=== PATIENT | male | born 1955 | race Caucasian/White ===

== ENCOUNTER 2018-09-22 07:33 | Day surgery (SDC) | payer BC, MEDICARE ==
[~2018-09-22 07:33] MED LIST: Gatifloxacin 0.5% Ophth Soln 2.5 ML Bot EYELF SCH; Sodium Chloride 0.9% 1,000 ML IV SCH; Sodium Chloride 0.9% 10 ML Syringe FLUSH PRN
[2018-09-22] MEDS: Cyclopentolate 1% Opth Soln 2 ML Bottle EYELF SCH ×3 (07:43→08:13)
[2018-09-22] MEDS: Phenylephrine 10% Ophth Soln 5 ML Bot EYELF SCH ×3 (07:53→08:19)
[2018-09-22] MEDS ORDERED: Balanced Salt Solution Ophth Irrig 15 ML Bottle EYELF ONE (09:17)
[2018-09-22] MEDS ORDERED: Water For Irrigation,Sterile 1,500 ML Container IRR ONE (09:17)
[2018-09-22] MEDS ORDERED: EPINEPHrine 1 MG/ML SDV ONE (09:18)
[2018-09-22] MEDS ORDERED: Carbachol 0.01% Intraocular 1.5 ML Vial EYELF ONE (09:18)
[2018-09-22] MEDS ORDERED: Balanced Salt Solution Plus Ophth Irrig 500 ML Bottle IOCULAR ONE (09:18)
[2018-09-22] MEDS ORDERED: Dexamethasone/Neomycin/Polymyxin B Ophth Oint 3.5 GM Tube EYELF ONE (09:19)
[2018-09-22] MEDS ORDERED: Lidocaine 2% with EPINEPHrine 1:100,000 20 ML MDV INJECT ONE (09:19)
[2018-09-22] MEDS ORDERED: Tetracaine HCl/PF 0.5% 4 ML Bottle EYEBOTH ONE (09:20)
[2018-09-22] MEDS ORDERED: Hyaluronate Sodium 1% 0.85 ML Syringe IOCULAR ONE (09:20)
[2018-09-22] MEDS ORDERED: Lidocaine 1% 10 ML MDV INJECT ONE (09:20)
--- NOTE | 2018-09-22 14:20 | OR ---
DATE OF SURGERY: 09/22/2018 SURGEON: Patrick Lilly MD PREOPERATIVE DIAGNOSIS: Cataract, left eye. POSTOPERATIVE DIAGNOSIS: Cataract, left eye. OPERATION PERFORMED: Phacoemulsification with posterior chamber lens insertion, left eye. HISTORY: The patient presents at this time with an increasing amount of difficulty seeing to drive at night using the left eye. The vision for the left eye is 20/60 -2. 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 This eye has a combined cataract and a cataract of aging. FINDINGS: The patient was taken to the operating room where appropriate anesthesia, sedation and monitoring were provided. A retrobulbar block was given on the left side. The eye was massaged and was found to be appropriately soft. The eye and eyelids were then prepped and draped in the usual sterile manner. A lid speculum was placed. A micro sharp blade was used to enter the anterior chamber inside the limbus inferior-temporally. Xylocaine was irrigated into the eye at this site. Healon was irrigated into the eye through this site. Then using a 2.85 mm corneal blade an entry was made into the anterior chamber just inside the limbus temporally. Healon was again irrigated into the eye. Then using a cystitome, the anterior capsulorrhexis was created. The lens nucleus was hydrodissected using a 27 gauge cannula and balanced salt solution. The phacoemulsification unit was introduced through the temporal site and the Mode spatula through the inferior temporal site. In so doing, the lens nucleus was phacoemulsified. The cortical fragments of the lens were removed using the irrigation aspiration unit. The posterior capsule was polished. Healon was irrigated into the eye. The posterior chamber lens was inserted and rotated into position inside the capsular bag. The Healon was irrigated out of the eye. Miostat was irrigated into the eye and the pupil rounded nicely. A single interrupted 10-0 Nylon suture was placed through the temporal corneal incision site. Balanced salt solution was irrigated into the eye. The wound was tested and found to be tight. Maxitrol ointment was placed into the patient's left eye. The eyelids were closed and an eye patch and nugent shield were placed. The patient left the operating room in good condition. /[id number]/MODL
== END 2018-09-22 09:57 | disposition home or self-care (01) ==
LOC: KA.SDS 07:33
PROVIDERS: ATTEND Ophthalmology
DX: E11.36 Type 2 diabetes mellitus with diabetic cataract (principal); H25.812 Combined forms of age-related cataract, left eye; E78.5 Hyperlipidemia, unspecified; G47.33 Obstructive sleep apnea (adult) (pediatric); Z79.84 Long term (current) use of oral hypoglycemic drugs; Z79.82 Long term (current) use of aspirin; Z79.899 Other long term (current) drug therapy; Z99.89 Dependence on other enabling machines and devices
CPT/HCPCS: 82962; A9270-GY; C1780; J0171; J2001; J7030

== ENCOUNTER 2018-10-27 05:53 | Day surgery (SDC) | payer BC ==
[2018-10-27] MEDS ORDERED: Sodium Chloride 0.9% 1,000 ML IV SCH (06:00)
[2018-10-27] MEDS ORDERED: Sodium Chloride 0.9% 10 ML Syringe FLUSH PRN (06:00)
[2018-10-27] MEDS ORDERED: Gatifloxacin 0.5% Ophth Soln 2.5 ML Bot EYERT SCH (06:00)
[2018-10-27] MEDS ORDERED: Moxifloxacin 0.5% Ophth Soln 3 ML Bottle EYERT ONE (06:05)
[2018-10-27] MEDS: Cyclopentolate 1% Opth Soln 2 ML Bottle EYERT SCH ×3 (06:22→06:52)
[2018-10-27] MEDS: Phenylephrine 10% Ophth Soln 5 ML Bot EYERT SCH ×3 (06:29→07:01)
[2018-10-27] MEDS ORDERED: Lidocaine 1% 10 ML MDV INJECT ONE (07:46)
[2018-10-27] MEDS ORDERED: EPINEPHrine 1 MG/ML SDV ONE (07:46)
[2018-10-27] MEDS ORDERED: Water For Irrigation,Sterile 1,500 ML Container IRR ONE (07:46)
[2018-10-27] MEDS ORDERED: Carbachol 0.01% Intraocular 1.5 ML Vial EYERT ONE (07:46)
[2018-10-27] MEDS ORDERED: Lidocaine 2% with EPINEPHrine 1:100,000 20 ML MDV INJECT ONE (07:46)
[2018-10-27] MEDS ORDERED: Balanced Salt Solution Plus Ophth Irrig 500 ML Bottle IOCULAR ONE (07:46)
[2018-10-27] MEDS ORDERED: Balanced Salt Solution Ophth Irrig 15 ML Bottle EYERT ONE (07:46)
[2018-10-27] MEDS ORDERED: Tetracaine HCl/PF 0.5% 4 ML Bottle EYEBOTH ONE (07:46)
[2018-10-27] MEDS ORDERED: Dexamethasone/Neomycin/Polymyxin B Ophth Oint 3.5 GM Tube EYERT ONE (07:46)
[2018-10-27] MEDS ORDERED: Hyaluronate Sodium 1% 0.85 ML Syringe IOCULAR ONE (07:46)
--- NOTE | 2018-10-27 15:10 | OR ---
DATE OF SURGERY: 10/27/2018 SURGEON: Patrick Lilly MD PREOPERATIVE DIAGNOSIS: Cataract, right eye. POSTOPERATIVE DIAGNOSIS: Cataract, right eye. OPERATION PERFORMED: Phacoemulsification with posterior chamber lens insertion, right eye. HISTORY: The patient presents at this time with an increasing amount of glare at night for the right eye. The vision in the right eye is 20/100. The right lens has a 3+ nuclear sclerosis, 2 to 3+ cortical change, and 1+ posterior subcapsular change. This eye has a combined cataract and a cataract of aging. FINDINGS: The patient was taken to the operating room where appropriate anesthesia, sedation and monitoring were provided. A retrobulbar block was given on the right side. The eye was massaged and was found to be appropriately soft. The eye and eyelids were then prepped and draped in the usual sterile manner. A lid speculum was placed. A micro sharp blade was used to enter the anterior chamber inside the limbus superior-temporally. Xylocaine was irrigated into the eye at this site. Healon was irrigated into the eye through this site. Then using a 2.85 mm corneal blade an entry was made into the anterior chamber just inside the limbus temporally. Healon was again irrigated into the eye. Then using a cystitome, the anterior capsulorrhexis was created. The lens nucleus was hydrodissected using a 27 gauge cannula and balanced salt solution. The phacoemulsification unit was introduced through the temporal site and the Mode spatula through the superior temporal site. In so doing, the lens nucleus was phacoemulsified. The cortical fragments of the lens were removed using the irrigation aspiration unit. The posterior capsule was polished. Healon was irrigated into the eye. The posterior chamber lens was inserted and rotated into position inside the capsular bag. The Healon was irrigated out of the eye. Miostat was irrigated into the eye and the pupil rounded nicely. A single interrupted 10-0 Nylon suture was placed through the temporal corneal incision site. Balanced salt solution was irrigated into the eye. The wound was tested and found to be tight. Maxitrol ointment was placed into the patient's right eye. The eyelids were closed and an eye patch and nugent shield were placed. The patient left the operating room in good condition. /[id number]/MODL
== END 2018-10-27 08:32 | disposition home or self-care (01) ==
LOC: KA.SDS 05:53
PROVIDERS: ATTEND Ophthalmology
DX: H25.811 Combined forms of age-related cataract, right eye (principal); I10 Essential (primary) hypertension; I25.10 Atherosclerotic heart disease of native coronary artery without angina pectoris; I35.0 Nonrheumatic aortic (valve) stenosis; I73.9 Peripheral vascular disease, unspecified; I72.4 Aneurysm of artery of lower extremity; E11.9 Type 2 diabetes mellitus without complications; E78.2 Mixed hyperlipidemia; F32.9 Major depressive disorder, single episode, unspecified; G47.33 Obstructive sleep apnea (adult) (pediatric); F17.200 Nicotine dependence, unspecified, uncomplicated; E66.09 Other obesity due to excess calories; Z68.34 Body mass index [BMI] 34.0-34.9, adult; Z86.39 Personal history of other endocrine, nutritional and metabolic disease; Z86.79 Personal history of other diseases of the circulatory system; Z95.1 Presence of aortocoronary bypass graft; Z88.1 Allergy status to other antibiotic agents; Z88.8 Allergy status to other drugs, medicaments and biological substances; Z99.89 Dependence on other enabling machines and devices
CPT/HCPCS: 82962; A9270-GY; C1780; J0171; J2001; J7030

== ENCOUNTER 2023-12-09 09:51 | Inpatient (IN) | payer BC, MEDICARE ==
[2023-12-09] MEDS ORDERED: Sodium Chloride 0.9% 10 ML Syringe FLUSH PRN (09:52)
[2023-12-09 10:03] LABS: BASOPHILS ABSOLUTE AUTO 0.03 10^3/uL (0.00-0.10); BASOPHILS PERCENT AUTO 0.4 % (0.0-1.0); EOSINOPHILS ABSOLUTE AUTO 0.06 10^3/uL (0.10-0.30); EOSINOPHILS PERCENT AUTO 0.8 % (1.0-3.0); HEMATOCRIT 38.6 % (40.0-52.0); HEMOGLOBIN 12.1 g/dL (13.0-17.0); IMMATURE GRAN ABSOLUTE AUTO 0.02 10^3/uL (0.00-0.50); IMMATURE GRAN PERCENT AUTO 0.3 % (0.0-5.0); MEAN CORPUSCULAR HGB CONC 31.3 g/dL (32.0-36.0); MEAN CORPUSCULAR VOLUME 89.4 fL (82.0-92.0); MEAN PLATELET VOLUME 10.9 fL (7.4-10.4); MONOCYTES ABSOLUTE AUTO 0.57 10^3/uL (0.10-0.80); MONOCYTES PERCENT AUTO 7.2 % (2.0-8.0); NEUTROPHILS ABSOLUTE AUTO 5.34 10^3/uL (2.50-7.00); NEUTROPHILS PERCENT AUTO 67.3 % (50.0-70.0); PLATELET COUNT,PLT 210 10^3/uL (150-400); RED BLOOD CELL COUNT 4.32 10^6/uL (4.50-6.00); RED CELL DISTRIBUTION WIDTH 15.7 % (11.5-14.5); WHITE BLOOD CELL COUNT,WBC 7.92 10^3/uL (5.00-10.00)
[2023-12-09] MEDS: Aspirin 81 MG Tab.Chew PO ONE (10:10)
[2023-12-09] MEDS: Sodium Chloride 0.9% 1,000 ML IV ONE (10:16)
[2023-12-09 10:28] LABS: ALANINE AMINOTRANSFERASE,ALT 30 U/L (14-63); ALBUMIN 3.86 g/dL (3.40-5.00); ALKALINE PHOSPHATASE 29 U/L (46-116); ANION GAP 15.1 mmol/L (5-15); ASPARTATE AMNIOTRANSFERASE,AST 23 U/L (15-37); BILIRUBIN TOTAL 0.8 mg/dL (0.2-1.0); BLOOD UREA NITROGEN,BUN 30 mg/dL (7-18); CALCIUM 9.6 mg/dL (8.7-10.3); CARBON DIOXIDE,CO2 21.7 mmol/L (21.0-32.0); CHLORIDE,CL 108 mmol/L (98-107); CREATININE 1.22 mg/dL (0.51-1.17); GLUCOSE RANDOM 146 mg/dL (70-140); MAGNESIUM 1.6 mg/dL (1.8-2.4); POTASSIUM,K 4.8 mmol/L (3.5-5.1); PROTEIN TOTAL,TP 7.5 g/dL (6.4-8.2); SODIUM,NA 140 mmol/L (136-145)
[2023-12-09 10:32] LABS: INR 1.1 (0.9-1.1); PROTHROMBIN TIME 11.5 SEC (9.3-12.2); PTT,PARTIAL THROMBOPLSTIN TIME 24.1 SEC (23.3-34.9)
[2023-12-09 10:37] LABS: ESTIMATED GFR 64 mL/min (>=60)
[2023-12-09 10:48] LABS: B-TYPE NATRIURETIC PEPTIDE,BNP 1200 pg/mL (0-100)
[2023-12-09] MEDS: Magnesium Sulfate/Water 2 GM in Premix Bag 1 BAG IV ONE (11:06)
[2023-12-09] MEDS: Iopamidol 755 Mg/ML 100 ML Bottle IV ONE (11:08)
[2023-12-09] MEDS: Sodium Chloride 0.9% 100 ML IV SCH (11:08)
[2023-12-09] MEDS: Furosemide 40 MG/4 ML VIAL IVPUSH ONE (12:07)
[2023-12-09] MEDS ORDERED: Albuterol/Ipratropium 3.0-0.5 MG/3 ML Neb Soln NEB PRN (13:43)
[2023-12-09] MEDS ORDERED: Acetaminophen 325 MG Tab PO PRN (13:43)
[2023-12-09] MEDS ORDERED: Potassium Chloride 20 MEQ Tab.ER PO SCH (14:00)
[2023-12-09] MEDS ORDERED: Nitroglycerin 0.4 MG Tab.SL SL PRN (14:01)
[2023-12-09] MEDS: Furosemide 40 MG/4 ML VIAL IVPUSH SCH (15:18)
[2023-12-09] MEDS ORDERED: 50% Dextrose in Water 50 ML Syringe IVPUSH PRN (17:54)
[2023-12-09] MEDS ORDERED: Glucagon,Human Recombinant 1 MG Vial IM PRN (17:54)
[2023-12-09] MEDS: Insulin Lispro 100 Unit/ML 3 ML KwikPen SUBCUT SCH (18:05)
[2023-12-09] MEDS: glipiZIDE 5 MG Tab PO SCH (18:07)
[2023-12-09] MEDS: amLODIPine 5 MG Tab PO SCH (20:50)
[2023-12-09] MEDS: Rosuvastatin 10 MG Tab PO SCH (20:50)
[2023-12-09] MEDS: Aspirin 81 MG Tab.EC PO SCH (20:50)
[2023-12-09] MEDS: FENOFIBRATE 160 MG PO SCH (20:50)
[2023-12-09] MEDS: Metoprolol Tartrate 50 MG Tab PO SCH (20:51)
[2023-12-09] MEDS: Lisinopril 10 MG Tab PO SCH (20:51)
[2023-12-10 07:43] LABS: HEMOGLOBIN 12.3 g/dL (13.0-17.0); RED BLOOD CELL COUNT 4.28 10^6/uL (4.50-6.00); WHITE BLOOD CELL COUNT,WBC 8.72 10^3/uL (5.00-10.00)
[2023-12-10 07:44] LABS: HEMATOCRIT 37.8 % (40.0-52.0); MEAN CORPUSCULAR HEMOGLOBIN 28.7 pg (27.0-31.0); MEAN CORPUSCULAR HGB CONC 32.5 g/dL (32.0-36.0); MEAN CORPUSCULAR VOLUME 88.3 fL (82.0-92.0); PLATELET COUNT,PLT 203 10^3/uL (150-400); RED CELL DISTRIBUTION WIDTH 15.6 % (11.5-14.5)
[2023-12-10] MEDS: Potassium Chloride 20 MEQ Tab.ER PO SCH (08:08)
[2023-12-10 08:09] LABS: POTASSIUM,K 4.3 mmol/L (3.3-5.3)
[2023-12-10 08:10] LABS: ALBUMIN 3.98 g/dL (3.00-4.80); ANION GAP 13.2 mmol/L (5-15); BILIRUBIN TOTAL 0.7 mg/dL (0.2-1.0); CALCIUM 9.5 mg/dL (8.7-10.3); CARBON DIOXIDE,CO2 26.1 mmol/L (21.0-32.0); CREATININE 1.18 mg/dL (0.51-1.17); EST CRCL DRUG DOSING (CG) 63.94 mL/min; MAGNESIUM 1.8 mg/dL (1.8-2.4); PROTEIN TOTAL,TP 7.6 g/dL (6.4-8.2)
[2023-12-10] MEDS: Enoxaparin 40 MG/0.4 ML Syringe SUBCUT SCH (21:22)
[2023-12-11 07:29] LABS: HEMATOCRIT 38.3 % (40.0-52.0); HEMOGLOBIN 12.3 g/dL (13.0-17.0); MEAN CORPUSCULAR HEMOGLOBIN 28.3 pg (27.0-31.0); MEAN CORPUSCULAR HGB CONC 32.1 g/dL (32.0-36.0); MEAN PLATELET VOLUME 10.7 fL (7.4-10.4); PLATELET COUNT,PLT 209 10^3/uL (150-400); RED BLOOD CELL COUNT 4.35 10^6/uL (4.50-6.00); RED CELL DISTRIBUTION WIDTH 15.6 % (11.5-14.5); WHITE BLOOD CELL COUNT,WBC 8.64 10^3/uL (5.00-10.00)
[2023-12-11 07:40] LABS: ALBUMIN 3.87 g/dL (3.40-5.00); ANION GAP 14.2 mmol/L (5-15); BILIRUBIN TOTAL 0.5 mg/dL (0.2-1.0); CALCIUM 9.6 mg/dL (8.7-10.3); CARBON DIOXIDE,CO2 27.5 mmol/L (21.0-32.0); CREATININE 1.28 mg/dL (0.51-1.17); EST CRCL DRUG DOSING (CG) 58.94 mL/min; MAGNESIUM 1.8 mg/dL (1.8-2.4); POTASSIUM,K 4.7 mmol/L (3.5-5.1); PROTEIN TOTAL,TP 7.4 g/dL (6.4-8.2)
== END 2023-12-11 11:10 | disposition home or self-care (01) | DRG 291 ==
LOC: KA.ED 09:51 → KA.MS 12:23
PROVIDERS: ADMIT Internal Medicine; ATTEND Internal Medicine
DX: I11.0 Hypertensive heart disease with heart failure (principal); I50.33 Acute on chronic diastolic (congestive) heart failure; Z96.651 Presence of right artificial knee joint; I20.9 Angina pectoris, unspecified; I25.10 Atherosclerotic heart disease of native coronary artery without angina pectoris; E78.5 Hyperlipidemia, unspecified; E11.9 Type 2 diabetes mellitus without complications; G47.30 Sleep apnea, unspecified; N40.0 Benign prostatic hyperplasia without lower urinary tract symptoms; M19.90 Unspecified osteoarthritis, unspecified site; E66.9 Obesity, unspecified; Z88.1 Allergy status to other antibiotic agents; Z96.659 Presence of unspecified artificial knee joint; E83.42 Hypomagnesemia; R59.0 Localized enlarged lymph nodes; E11.51 Type 2 diabetes mellitus with diabetic peripheral angiopathy without gangrene; F17.210 Nicotine dependence, cigarettes, uncomplicated; Z95.1 Presence of aortocoronary bypass graft; Z98.890 Other specified postprocedural states; Z91.048 Other nonmedicinal substance allergy status; Z88.0 Allergy status to penicillin; Z88.8 Allergy status to other drugs, medicaments and biological substances; Z79.899 Other long term (current) drug therapy; Z79.2 Long term (current) use of antibiotics; Z79.84 Long term (current) use of oral hypoglycemic drugs; Z79.82 Long term (current) use of aspirin; I25.2 Old myocardial infarction; Z68.31 Body mass index [BMI] 31.0-31.9, adult; Z98.49 Cataract extraction status, unspecified eye; Z95.5 Presence of coronary angioplasty implant and graft; Z86.16 Personal history of COVID-19; Z95.2 Presence of prosthetic heart valve
CPT/HCPCS: 36415; 71045; 71275; 80053; 82947; 83605; 83735; 83880; 84484; 85025; 85027; 85379; 85610; 85730; 96361; 96365; 99285-25; A9270-GY; J1650; J1815-GY; J1940; J3475; J3490; J7030; Q3014; Q9967

== ENCOUNTER 2023-12-13 16:58 | Emergency (ER) | payer MEDICARE ==
[2023-12-13] MEDS ORDERED: Sodium Chloride 0.9% 10 ML Syringe FLUSH PRN (17:09)
[2023-12-13 17:40] LABS: BASOPHILS ABSOLUTE AUTO 0.05 10^3/uL (0.00-0.10); BASOPHILS PERCENT AUTO 0.6 % (0.0-1.0); EOSINOPHILS ABSOLUTE AUTO 0.07 10^3/uL (0.10-0.30); EOSINOPHILS PERCENT AUTO 0.9 % (1.0-3.0); HEMATOCRIT 36.9 % (40.0-52.0); IMMATURE GRAN ABSOLUTE AUTO 0.01 10^3/uL (0.00-0.50); IMMATURE GRAN PERCENT AUTO 0.1 % (0.0-5.0); LYMPHOCYTES PERCENT AUTO 32.1 % (20.0-40.0); MEAN CORPUSCULAR HEMOGLOBIN 28.8 pg (27.0-31.0); MEAN CORPUSCULAR HGB CONC 32.5 g/dL (32.0-36.0); MEAN CORPUSCULAR VOLUME 88.5 fL (82.0-92.0); MEAN PLATELET VOLUME 11.4 fL (7.4-10.4); MONOCYTES ABSOLUTE AUTO 0.69 10^3/uL (0.10-0.80); MONOCYTES PERCENT AUTO 8.5 % (2.0-8.0); NEUTROPHILS ABSOLUTE AUTO 4.68 10^3/uL (2.50-7.00); NEUTROPHILS PERCENT AUTO 57.8 % (50.0-70.0); PLATELET COUNT,PLT 200 10^3/uL (150-400); RED BLOOD CELL COUNT 4.17 10^6/uL (4.50-6.00); RED CELL DISTRIBUTION WIDTH 15.6 % (11.5-14.5)
[2023-12-13 17:58] LABS: ALBUMIN 3.93 g/dL (3.40-5.00); ANION GAP 15.2 mmol/L (5-15); BILIRUBIN TOTAL 0.4 mg/dL (0.2-1.0); CALCIUM 9.6 mg/dL (8.7-10.3); CARBON DIOXIDE,CO2 23.4 mmol/L (21.0-32.0); CREATININE 1.22 mg/dL (0.51-1.17); EST CRCL DRUG DOSING (CG) 63.67 mL/min; MAGNESIUM 1.9 mg/dL (1.8-2.4); POTASSIUM,K 4.6 mmol/L (3.5-5.1); PROTEIN TOTAL,TP 7.4 g/dL (6.4-8.2)
[2023-12-13] MEDS: Furosemide 40 MG/4 ML VIAL IVPUSH ONE (18:10)
== END 2023-12-13 18:35 | disposition home or self-care (01) ==
LOC: KA.ED 16:58
DX: I11.0 Hypertensive heart disease with heart failure (principal); I50.33 Acute on chronic diastolic (congestive) heart failure; I25.10 Atherosclerotic heart disease of native coronary artery without angina pectoris; M19.90 Unspecified osteoarthritis, unspecified site; E11.9 Type 2 diabetes mellitus without complications; E66.9 Obesity, unspecified; Z79.84 Long term (current) use of oral hypoglycemic drugs; Z79.82 Long term (current) use of aspirin; Z79.899 Other long term (current) drug therapy; Z88.0 Allergy status to penicillin; Z91.048 Other nonmedicinal substance allergy status; Z68.31 Body mass index [BMI] 31.0-31.9, adult
CPT/HCPCS: 71045; 80053; 83605; 83735; 83880; 84484; 85025; 96374; 99285-25; J1940

== ENCOUNTER 2023-12-22 10:41 | Emergency (ER) | payer MEDICARE ==
[2023-12-22 11:09] LABS: BASOPHILS ABSOLUTE AUTO 0.05 10^3/uL (0.00-0.10); BASOPHILS PERCENT AUTO 0.6 % (0.0-1.0); EOSINOPHILS ABSOLUTE AUTO 0.02 10^3/uL (0.10-0.30); EOSINOPHILS PERCENT AUTO 0.2 % (1.0-3.0); HEMATOCRIT 38.1 % (40.0-52.0); HEMOGLOBIN 12.2 g/dL (13.0-17.0); IMMATURE GRAN ABSOLUTE AUTO 0.01 10^3/uL (0.00-0.50); IMMATURE GRAN PERCENT AUTO 0.1 % (0.0-5.0); LYMPHOCYTES ABSOLUTE AUTO 2.03 10^3/uL (1.00-4.00); LYMPHOCYTES PERCENT AUTO 22.9 % (20.0-40.0); MEAN CORPUSCULAR HEMOGLOBIN 28.2 pg (27.0-31.0); MEAN CORPUSCULAR VOLUME 88.2 fL (82.0-92.0); MEAN PLATELET VOLUME 11.7 fL (7.4-10.4); MONOCYTES PERCENT AUTO 6.8 % (2.0-8.0); NEUTROPHILS ABSOLUTE AUTO 6.16 10^3/uL (2.50-7.00); NEUTROPHILS PERCENT AUTO 69.4 % (50.0-70.0); PLATELET COUNT,PLT 211 10^3/uL (150-400); RED BLOOD CELL COUNT 4.32 10^6/uL (4.50-6.00); RED CELL DISTRIBUTION WIDTH 15.5 % (11.5-14.5); WHITE BLOOD CELL COUNT,WBC 8.87 10^3/uL (5.00-10.00)
[2023-12-22] MEDS: Furosemide 40 MG/4 ML VIAL IVPUSH ONE (11:20)
[2023-12-22 11:25] LABS: ALBUMIN 4.08 g/dL (3.40-5.00); ANION GAP 17.6 mmol/L (5-15); CALCIUM 9.8 mg/dL (8.7-10.3); CREATININE 1.59 mg/dL (0.51-1.17); EST CRCL DRUG DOSING (CG) 47.45 mL/min; MAGNESIUM 1.9 mg/dL (1.8-2.4); POTASSIUM,K 4.6 mmol/L (3.5-5.1); PROTEIN TOTAL,TP 7.8 g/dL (6.4-8.2)
[2023-12-22] MEDS: Sodium Chloride 0.9% 10 ML Syringe FLUSH PRN (11:26)
== END 2023-12-22 14:59 ==
LOC: KA.ED 10:41
DX: I11.0 Hypertensive heart disease with heart failure (principal); I50.33 Acute on chronic diastolic (congestive) heart failure; R06.01 Orthopnea; R79.89 Other specified abnormal findings of blood chemistry; I25.10 Atherosclerotic heart disease of native coronary artery without angina pectoris; I25.2 Old myocardial infarction; E11.51 Type 2 diabetes mellitus with diabetic peripheral angiopathy without gangrene; E66.9 Obesity, unspecified; N28.9 Disorder of kidney and ureter, unspecified; Z79.899 Other long term (current) drug therapy; Z79.84 Long term (current) use of oral hypoglycemic drugs; Z79.82 Long term (current) use of aspirin; Z88.1 Allergy status to other antibiotic agents; Z88.8 Allergy status to other drugs, medicaments and biological substances; Z91.048 Other nonmedicinal substance allergy status; Z88.0 Allergy status to penicillin; Z87.891 Personal history of nicotine dependence; Z68.31 Body mass index [BMI] 31.0-31.9, adult
CPT/HCPCS: 71045; 80053; 83735; 83880; 84484; 85025; 93010; 96374; 99284; 99285-25; J1940; J3490

== ENCOUNTER 2024-02-02 14:20 | Observation (INO) | payer MEDICARE ==
[2024-02-02 15:37] LABS: ANION GAP 15.6 mmol/L (5-15); CARBON DIOXIDE,CO2 26.9 mmol/L (21.0-32.0); CREATININE 1.71 mg/dL (0.51-1.17); EST CRCL DRUG DOSING (CG) 44.12 mL/min; POTASSIUM,K 4.5 mmol/L (3.5-5.1)
[2024-02-02 15:39] LABS: CALCIUM 13.1 mg/dL (8.7-10.3)
[2024-02-02] MEDS: Sodium Chloride 0.9% 1,000 ML IV SCH (15:50)
[2024-02-02 16:02] LABS: ALBUMIN 3.32 g/dL (3.40-5.00); PHOSPHORUS 3.6 mg/dL (2.6-4.7)
[2024-02-02 16:30] LABS: APPEARANCE,URINE CLEAR (CLEAR); COLOR,URINE YELLOW (YELLOW); PH,URINE 5.5 (5.0-9.0); PROTEIN,URINE >=300 mg/dL (NEGATIVE)
[2024-02-02 16:31] LABS: BILIRUBIN,URINE NEGATIVE (NEGATIVE); GLUCOSE,URINE NEGATIVE (NEGATIVE); KETONES,URINE TRACE mg/dL (NEGATIVE); LEUKOCYTE ESTERASE,URINE NEGATIVE (NEGATIVE); NITRITE,URINE NEGATIVE (NEGATIVE); OCCULT BLOOD,URINE LARGE (NEGATIVE); UROBILINOGEN,URINE 0.2 E.U./dL (0.2-1.0)
[2024-02-02 16:42] LABS: BACTERIA,URINE FEW /HPF (NONE TO FEW); EPITHELIAL CELLS,URINE RARE /LPF; HYALINE CASTS,URINE OCCASIONAL; MUCUS,URINE FEW /LPF (NEGATIVE); RBC,URINE 0-5 /HPF (0-5); WBC,URINE 0-5 /HPF (0-5)
[2024-02-02 16:43] LABS: AMORPHOUS SEDIMENT,URINE FEW /HPF (0/HPF)
[2024-02-02] MEDS ORDERED: Acetaminophen 325 MG Tab PO PRN (17:53)
[2024-02-02] MEDS ORDERED: Acetaminophen/HYDROcodone 325-5 MG Tab PO PRN (17:53)
[2024-02-02] MEDS ORDERED: 50% Dextrose in Water 50 ML Syringe IVPUSH PRN (18:01)
[2024-02-02] MEDS ORDERED: Glucagon,Human Recombinant 1 MG Vial IM PRN (18:01)
[2024-02-02 19:05] LABS: PCO2 VENOUS,POC 39 mmHg (41-51); PH VENOUS,POC 7.41 pH (7.32-7.43); PO2 VENOUS,POC 77 mmHg
[2024-02-02 19:30] LABS: INR 2.5 (0.9-1.1); PROTHROMBIN TIME 25.2 SEC (9.3-12.2)
[2024-02-02] MEDS: Cefepime 2 GM Vial IV SCH (19:30)
[2024-02-02] MEDS: Ondansetron 4 MG/2 ML SDV IV PRN (19:30)
[2024-02-02] MEDS: Zoledronic Acid 4 MG in Sodium Chloride 0.9% 100 ML IV ONE (19:46)
[2024-02-02 19:48] LABS: ALBUMIN 3.21 g/dL (3.40-5.00); ANION GAP 15.9 mmol/L (5-15); CALCIUM 12.7 mg/dL (8.7-10.3); CARBON DIOXIDE,CO2 25.2 mmol/L (21.0-32.0); CREATININE 1.61 mg/dL (0.51-1.17); EST CRCL DRUG DOSING (CG) 46.86 mL/min; PHOSPHORUS 3.5 mg/dL (2.6-4.7); POTASSIUM,K 4.1 mmol/L (3.5-5.1)
[2024-02-02] MEDS: DAPTOmycin 500 MG Vial IV SCH (19:59)
[2024-02-02] MEDS: Zoledronic Acid in Water 4 MG in Premix Bag 1 BAG IV ONE (21:05)
[2024-02-02] MEDS: Melatonin 3 MG Tab PO SCH (22:07)
[2024-02-03] MEDS: Omeprazole 20 MG Cap.CR PO SCH (06:10)
[2024-02-03 07:08] LABS: HEMATOCRIT 37.1 % (40.0-52.0); HEMOGLOBIN 11.5 g/dL (13.0-17.0); MEAN CORPUSCULAR HEMOGLOBIN 25.7 pg (27.0-31.0); MEAN PLATELET VOLUME 10.3 fL (7.4-10.4); PLATELET COUNT,PLT 332 10^3/uL (150-400); RED BLOOD CELL COUNT 4.47 10^6/uL (4.50-6.00); RED CELL DISTRIBUTION WIDTH 15.3 % (11.5-14.5); WHITE BLOOD CELL COUNT,WBC 9.16 10^3/uL (5.00-10.00)
[2024-02-03 07:31] LABS: ALBUMIN 2.99 g/dL (3.40-5.00); ANION GAP 12.3 mmol/L (5-15); BILIRUBIN TOTAL 0.4 mg/dL (0.2-1.0); CALCIUM 11.4 mg/dL (8.7-10.3); CARBON DIOXIDE,CO2 28.1 mmol/L (21.0-32.0); CREATININE 1.41 mg/dL (0.51-1.17); EST CRCL DRUG DOSING (CG) 53.51 mL/min; POTASSIUM,K 4.4 mmol/L (3.5-5.1); PROTEIN TOTAL,TP 7.4 g/dL (6.4-8.2); T4 FREE 0.89 ng/dL (0.76-1.46); TSH ULTRASENSITIVE 2.118 uIU/mL (0.340-4.820)
[2024-02-03] MEDS: Insulin Lispro 100 Unit/ML 3 ML KwikPen SUBCUT SCH (07:58)
[2024-02-03] MEDS: Lactobacillus Rhamnosus GG (Probiotic) Cap PO SCH (08:00)
[2024-02-03] MEDS: Warfarin 2 MG Tab PO SCH (09:05)
[2024-02-03] MEDS ORDERED: FENOFIBRATE 160 MG PO SCH (21:00)
[2024-02-05 17:07] LABS: INTACT PTH 7 pg/mL (15-65)
== END 2024-02-03 12:27 | disposition swing bed (61) ==
LOC: KA.ED 14:20 → KA.MS 16:28
PROVIDERS: ADMIT Internal Medicine; ATTEND Internal Medicine
DX: I33.0 Acute and subacute infective endocarditis (principal); E83.52 Hypercalcemia; N28.9 Disorder of kidney and ureter, unspecified; Z95.2 Presence of prosthetic heart valve; I11.0 Hypertensive heart disease with heart failure; I50.9 Heart failure, unspecified; E11.9 Type 2 diabetes mellitus without complications; I25.10 Atherosclerotic heart disease of native coronary artery without angina pectoris; Z79.84 Long term (current) use of oral hypoglycemic drugs; Z79.899 Other long term (current) drug therapy
CPT/HCPCS: 36415; 71045; 74018; 80048; 80053; 80069; 81001; 82040; 82306; 82340; 82550; 82803; 82947; 83880; 83970; 84100; 84439; 84443; 85027; 85610; 96360; 96361; 96365; 96367; 96375; 96376; 99285-25; A9270-GY; G0378; J0692; J0878; J1815-GY; J2405; J3489; J7030; Q3014

== ENCOUNTER 2024-02-03 11:06 | Inpatient (IN) | payer MEDICARE ==
[2024-02-03] MEDS: Sodium Chloride 0.9% 1,000 ML IV SCH (11:00)
[2024-02-03] MEDS ORDERED: Sodium Chloride 0.9% 1,000 ML IV SCH (13:01)
[2024-02-03] MEDS ORDERED: Glucagon,Human Recombinant 1 MG Vial IM PRN ×2 (13:01)
[2024-02-03] MEDS ORDERED: 50% Dextrose in Water 50 ML Syringe IVPUSH PRN (13:01)
[2024-02-03] MEDS ORDERED: Acetaminophen/HYDROcodone 325-5 MG Tab PO PRN (13:01)
[2024-02-03] MEDS: Ondansetron 4 MG/2 ML SDV IV PRN (17:53)
[2024-02-03] MEDS: Insulin Lispro 100 Unit/ML 3 ML KwikPen SUBCUT SCH (18:02)
[2024-02-03] MEDS: DAPTOmycin 500 MG Vial IVPUSH SCH (18:04)
[2024-02-03] MEDS: Cefepime 2 GM Vial IVPUSH SCH (18:04)
[2024-02-03] MEDS: Melatonin 3 MG Tab PO SCH (20:07)
[2024-02-03] MEDS: FENOFIBRATE 160 MG PO SCH (20:07)
[2024-02-03] MEDS: Bisacodyl 5 MG Tab PO PRN (20:13)
[2024-02-04] MEDS: Omeprazole 20 MG Cap.CR PO SCH (06:04)
[2024-02-04] MEDS: Acetaminophen 325 MG Tab PO PRN (06:18)
[2024-02-04 07:22] LABS: HEMATOCRIT 32.3 % (40.0-52.0); HEMOGLOBIN 10.2 g/dL (13.0-17.0); MEAN CORPUSCULAR HEMOGLOBIN 25.8 pg (27.0-31.0); MEAN CORPUSCULAR HGB CONC 31.6 g/dL (32.0-36.0); MEAN CORPUSCULAR VOLUME 81.6 fL (82.0-92.0); MEAN PLATELET VOLUME 10.1 fL (7.4-10.4); PLATELET COUNT,PLT 262 10^3/uL (150-400); RED BLOOD CELL COUNT 3.96 10^6/uL (4.50-6.00); RED CELL DISTRIBUTION WIDTH 15.2 % (11.5-14.5); WHITE BLOOD CELL COUNT,WBC 10.07 10^3/uL (5.00-10.00)
[2024-02-04 07:40] LABS: ALBUMIN 2.6 g/dL (3.40-5.00); ANION GAP 12.5 mmol/L (5-15); BILIRUBIN TOTAL 0.5 mg/dL (0.2-1.0); CALCIUM 10.5 mg/dL (8.7-10.3); CARBON DIOXIDE,CO2 24.9 mmol/L (21.0-32.0); CREATININE 1.28 mg/dL (0.51-1.17); EST CRCL DRUG DOSING (CG) 58.94 mL/min; POTASSIUM,K 4.4 mmol/L (3.5-5.1); PROTEIN TOTAL,TP 6.6 g/dL (6.4-8.2)
[2024-02-04 07:46] LABS: INR 2.2 (0.9-1.1); PROTHROMBIN TIME 22.6 SEC (9.3-12.2)
[2024-02-04] MEDS: Lactobacillus Rhamnosus GG (Probiotic) Cap PO SCH (08:07)
[2024-02-04] MEDS: Warfarin 2 MG Tab PO ONE (09:29)
[2024-02-04] MEDS: Polyethylene Glycol 3350 Powder 17 GM Packet PO PRN (12:36)
[2024-02-05 07:42] LABS: ALBUMIN 2.62 g/dL (3.40-5.00); ANION GAP 11.8 mmol/L (5-15); BILIRUBIN TOTAL 0.4 mg/dL (0.2-1.0); CALCIUM 10.7 mg/dL (8.7-10.3); CARBON DIOXIDE,CO2 28.2 mmol/L (21.0-32.0); CREATININE 1.36 mg/dL (0.51-1.17); EST CRCL DRUG DOSING (CG) 55.47 mL/min; PROTEIN TOTAL,TP 6.9 g/dL (6.4-8.2)
[2024-02-05] MEDS: Magnesium Hydroxide 400 MG/5 ML Susp 30 ML Cup PO PRN (08:41)
[2024-02-05] MEDS: Warfarin** 1 MG TABLET PO ONE (11:42)
[2024-02-05] MEDS: Warfarin 2 MG Tab PO ONE (11:42)
[2024-02-05] MEDS ORDERED: Bisacodyl 10 MG Supp RECTAL PRN (11:58)
[2024-02-06 07:46] LABS: INR 1.8 (0.9-1.1); PROTHROMBIN TIME 18.4 SEC (9.3-12.2)
[2024-02-06 08:04] LABS: ALBUMIN 2.47 g/dL (3.40-5.00); ANION GAP 14.8 mmol/L (5-15); CALCIUM 10.5 mg/dL (8.7-10.3); CARBON DIOXIDE,CO2 23.8 mmol/L (21.0-32.0); CREATININE 1.22 mg/dL (0.51-1.17); EST CRCL DRUG DOSING (CG) 61.84 mL/min; POTASSIUM,K 4.6 mmol/L (3.5-5.1)
[2024-02-06] MEDS: Warfarin 2 MG Tab PO ONE (18:29)
[2024-02-07 07:30] LABS: INR 1.7 (0.9-1.1)
[2024-02-07] MEDS: Warfarin** 1 MG TABLET PO ONE (13:38)
[2024-02-07] MEDS: DAPTOmycin 500 MG Vial IVPUSH SCH (13:38)
[2024-02-07] MEDS: Cefepime 2 GM Vial IVPUSH SCH (13:38)
[2024-02-07] MEDS: Warfarin 5 MG Tab PO ONE (14:02)
== END 2024-02-07 14:14 | disposition home or self-care (01) | DRG 947 ==
LOC: UNDOADMIN 12:27 → KA.MS 12:27
PROVIDERS: ADMIT Internal Medicine; ATTEND Internal Medicine
DX: R53.1 Weakness (principal); I33.0 Acute and subacute infective endocarditis; R53.81 Other malaise; E83.52 Hypercalcemia; Z95.2 Presence of prosthetic heart valve
CPT/HCPCS: 36415; 36416; 80053; 80069; 82947; 85027; 85610; A9270-GY; J0692; J0878; J1815-GY; J2405; J7030; Q3014

== ENCOUNTER 2024-10-05 11:55 | Emergency (ER) | payer MEDICARE ==
[2024-10-05] MEDS ORDERED: Sodium Chloride 0.9% 10 ML Syringe FLUSH PRN (12:05)
[2024-10-05 12:10] LABS: BASOPHILS ABSOLUTE AUTO 0.08 10^3/uL (0.00-0.10); EOSINOPHILS ABSOLUTE AUTO 0.37 10^3/uL (0.10-0.30); EOSINOPHILS PERCENT AUTO 4.8 % (1.0-3.0); HEMATOCRIT 40.9 % (40.0-52.0); HEMOGLOBIN 12.9 g/dL (13.0-17.0); IMMATURE GRAN ABSOLUTE AUTO 0.03 10^3/uL (0.00-0.04); IMMATURE GRAN PERCENT AUTO 0.4 % (0.0-0.4); LYMPHOCYTES ABSOLUTE AUTO 2.22 10^3/uL (1.00-4.00); LYMPHOCYTES PERCENT AUTO 28.9 % (20.0-40.0); MEAN CORPUSCULAR HEMOGLOBIN 28.1 pg (27.0-31.0); MEAN CORPUSCULAR HGB CONC 31.5 g/dL (32.0-36.0); MEAN CORPUSCULAR VOLUME 89.1 fL (82.0-92.0); MONOCYTES ABSOLUTE AUTO 0.69 10^3/uL (0.10-0.80); NEUTROPHILS ABSOLUTE AUTO 4.28 10^3/uL (2.50-7.00); NEUTROPHILS PERCENT AUTO 55.9 % (50.0-70.0); PLATELET COUNT,PLT 277 10^3/uL (150-400); RED BLOOD CELL COUNT 4.59 10^6/uL (4.50-6.00); RED CELL DISTRIBUTION WIDTH 16.4 % (11.5-14.5); WHITE BLOOD CELL COUNT,WBC 7.67 10^3/uL (5.00-10.00)
[2024-10-05] MEDS: Amiodarone/Dextrose,Iso-Osmotic 150 MG/100 ML Premix Bag IV ONE (12:17)
[2024-10-05] MEDS: Sodium Chloride 0.9% 1,000 ML IV ONE (12:19)
[2024-10-05 12:27] LABS: ALANINE AMINOTRANSFERASE,ALT 35 U/L (14-63); ALBUMIN 3.99 g/dL (3.40-5.00); ALKALINE PHOSPHATASE 20 U/L (46-116); ASPARTATE AMNIOTRANSFERASE,AST 17 U/L (15-37); BILIRUBIN TOTAL 0.5 mg/dL (0.2-1.0); BLOOD UREA NITROGEN,BUN 37 mg/dL (7-18); CALCIUM 10.1 mg/dL (8.7-10.3); CARBON DIOXIDE,CO2 20.5 mmol/L (21.0-32.0); CHLORIDE,CL 106 mmol/L (98-107); CREATININE 1.62 mg/dL (0.51-1.17); GLUCOSE RANDOM 132 mg/dL (70-140); MAGNESIUM 2.1 mg/dL (1.8-2.4); POTASSIUM,K 5.5 mmol/L (3.5-5.1); PROTEIN TOTAL,TP 7.5 g/dL (6.4-8.2); SODIUM,NA 139 mmol/L (136-145)
[2024-10-05 12:31] LABS: B-TYPE NATRIURETIC PEPTIDE,BNP 861 pg/mL (0-100)
[2024-10-05 12:34] LABS: ESTIMATED GFR 45 mL/min (>=60)
[2024-10-05] MEDS: Amiodarone 360 MG/200 ML 360 MG/200 ML BAG IV SCH (12:46)
[2024-10-05] MEDS: Phenylephrine HCl 50 MG in Sodium Chloride 0.9% 245 ML IV SCH (12:51)
== END 2024-10-05 14:14 ==
LOC: KA.ED 11:55
DX: I95.9 Hypotension, unspecified (principal); I47.20 Ventricular tachycardia, unspecified; I25.10 Atherosclerotic heart disease of native coronary artery without angina pectoris; I11.0 Hypertensive heart disease with heart failure; I50.9 Heart failure, unspecified; I25.2 Old myocardial infarction; E11.9 Type 2 diabetes mellitus without complications; Z91.048 Other nonmedicinal substance allergy status; Z88.0 Allergy status to penicillin; Z88.1 Allergy status to other antibiotic agents; Z79.84 Long term (current) use of oral hypoglycemic drugs; Z79.899 Other long term (current) drug therapy; Z95.5 Presence of coronary angioplasty implant and graft
CPT/HCPCS: 36415; 71045; 80053; 83605; 83735; 83880; 84484; 85025; 93010; 96365; 96368; 96376; 99284; 99285-25; J0283; J2371; J7030

== ENCOUNTER 2024-10-27 13:15 | Emergency (ER) | payer MEDICARE ==
[2024-10-27] MEDS ORDERED: Sodium Chloride 0.9% 10 ML Syringe FLUSH PRN (13:20)
[2024-10-27 13:44] LABS: BASOPHILS PERCENT AUTO 0.9 % (0.0-1.0); EOSINOPHILS ABSOLUTE AUTO 0.94 10^3/uL (0.10-0.30); EOSINOPHILS PERCENT AUTO 8.9 % (1.0-3.0); HEMATOCRIT 39.2 % (40.0-52.0); HEMOGLOBIN 12.3 g/dL (13.0-17.0); IMMATURE GRAN ABSOLUTE AUTO 0.12 10^3/uL (0.00-0.04); IMMATURE GRAN PERCENT AUTO 1.1 % (0.0-0.4); LYMPHOCYTES ABSOLUTE AUTO 1.95 10^3/uL (1.00-4.00); LYMPHOCYTES PERCENT AUTO 18.5 % (20.0-40.0); MEAN CORPUSCULAR HEMOGLOBIN 28.2 pg (27.0-31.0); MEAN CORPUSCULAR HGB CONC 31.4 g/dL (32.0-36.0); MEAN CORPUSCULAR VOLUME 89.9 fL (82.0-92.0); MEAN PLATELET VOLUME 11.1 fL (7.4-10.4); MONOCYTES ABSOLUTE AUTO 0.69 10^3/uL (0.10-0.80); MONOCYTES PERCENT AUTO 6.6 % (2.0-8.0); NEUTROPHILS ABSOLUTE AUTO 6.73 10^3/uL (2.50-7.00); PLATELET COUNT,PLT 259 10^3/uL (150-400); RED BLOOD CELL COUNT 4.36 10^6/uL (4.50-6.00); RED CELL DISTRIBUTION WIDTH 15.7 % (11.5-14.5); WHITE BLOOD CELL COUNT,WBC 10.53 10^3/uL (5.00-10.00)
[2024-10-27 14:02] LABS: ANION GAP 16.3 mmol/L (5-15); CALCIUM 10.1 mg/dL (8.7-10.3); CARBON DIOXIDE,CO2 24.6 mmol/L (21.0-32.0); CREATININE 1.51 mg/dL (0.51-1.17); EST CRCL DRUG DOSING (CG) 49.25 mL/min; POTASSIUM,K 4.9 mmol/L (3.5-5.1)
[2024-10-27] MEDS: Amiodarone/Dextrose,Iso-Osmotic 150 MG/100 ML Premix Bag IV ONE (15:04)
[2024-10-27] MEDS: Amiodarone 360 MG/200 ML 360 MG/200 ML BAG IV SCH (15:10)
[2024-10-27] MEDS: Amiodarone 360 MG/200 ML 200 ML ONE (15:17)
[2024-10-27] MEDS: Amiodarone 150 MG/100 ML 100 ML IV ONE (15:17)
[2024-10-27] MEDS ORDERED: HYDROmorphone 1 MG/ML Syringe IVPUSH ONE (16:45)
[2024-10-27] MEDS ORDERED: Ondansetron 4 MG/2 ML SDV IVPUSH ONE (16:46)
== END 2024-10-27 15:28 ==
LOC: KA.ED 13:23
DX: I25.10 Atherosclerotic heart disease of native coronary artery without angina pectoris (principal); I47.20 Ventricular tachycardia, unspecified; N28.9 Disorder of kidney and ureter, unspecified; I48.91 Unspecified atrial fibrillation; I11.0 Hypertensive heart disease with heart failure; I50.9 Heart failure, unspecified; Z95.1 Presence of aortocoronary bypass graft; E11.9 Type 2 diabetes mellitus without complications; Z86.16 Personal history of COVID-19; Z91.048 Other nonmedicinal substance allergy status; Z88.0 Allergy status to penicillin; Z79.84 Long term (current) use of oral hypoglycemic drugs; Z79.899 Other long term (current) drug therapy; Z95.0 Presence of cardiac pacemaker
CPT/HCPCS: 71045; 80048; 83605; 83735; 84484; 85025; 93005; 93010; 96374; 96376; 99284; 99285-25; J0283

== ENCOUNTER 2024-11-28 13:54 | Emergency (ER) | payer MEDICARE ==
[2024-11-28 14:57] LABS: BASOPHILS ABSOLUTE AUTO 0.07 10^3/uL (0.00-0.10); BASOPHILS PERCENT AUTO 0.8 % (0.0-1.0); HEMATOCRIT 38.8 % (40.0-52.0); HEMOGLOBIN 12.2 g/dL (13.0-17.0); IMMATURE GRAN ABSOLUTE AUTO 0.04 10^3/uL (0.00-0.04); IMMATURE GRAN PERCENT AUTO 0.5 % (0.0-0.4); LYMPHOCYTES ABSOLUTE AUTO 1.42 10^3/uL (1.00-4.00); LYMPHOCYTES PERCENT AUTO 17.1 % (20.0-40.0); MEAN CORPUSCULAR HEMOGLOBIN 28.5 pg (27.0-31.0); MEAN CORPUSCULAR HGB CONC 31.4 g/dL (32.0-36.0); MEAN CORPUSCULAR VOLUME 90.7 fL (82.0-92.0); MEAN PLATELET VOLUME 10.3 fL (7.4-10.4); MONOCYTES ABSOLUTE AUTO 0.75 10^3/uL (0.10-0.80); MONOCYTES PERCENT AUTO 9.1 % (2.0-8.0); NEUTROPHILS PERCENT AUTO 72.5 % (50.0-70.0); PLATELET COUNT,PLT 313 10^3/uL (150-400); RED BLOOD CELL COUNT 4.28 10^6/uL (4.50-6.00); RED CELL DISTRIBUTION WIDTH 15.6 % (11.5-14.5); WHITE BLOOD CELL COUNT,WBC 8.28 10^3/uL (5.00-10.00)
[2024-11-28] MEDS: Sodium Chloride 0.9% 1,000 ML IV ONE (15:16)
[2024-11-28 15:22] LABS: ALANINE AMINOTRANSFERASE,ALT 21 U/L (14-63); ALBUMIN 3.88 g/dL (3.40-5.00); ALKALINE PHOSPHATASE 28 U/L (46-116); ANION GAP 12.8 mmol/L (5-15); ASPARTATE AMNIOTRANSFERASE,AST 20 U/L (15-37); BILIRUBIN TOTAL 0.4 mg/dL (0.2-1.0); BLOOD UREA NITROGEN,BUN 40 mg/dL (7-18); C-REACTIVE PROTEIN < 0.50 mg/dL (0.00-0.50); CALCIUM 9.7 mg/dL (8.7-10.3); CARBON DIOXIDE,CO2 25.9 mmol/L (21.0-32.0); CHLORIDE,CL 106 mmol/L (98-107); CREATININE 1.73 mg/dL (0.51-1.17); EST CRCL DRUG DOSING (CG) 42.99 mL/min; ESTIMATED GFR 42 mL/min (>=60); GLUCOSE RANDOM 110 mg/dL (70-140); POTASSIUM,K 4.7 mmol/L (3.5-5.1); PROTEIN TOTAL,TP 7.5 g/dL (6.4-8.2); SODIUM,NA 140 mmol/L (136-145)
[2024-11-28] MEDS: Iopamidol 755 Mg/ML 100 ML Bottle IV ONE (15:39)
[2024-11-28] MEDS: Sodium Chloride 0.9% 50 ML IV SCH (15:39)
[2024-11-28] MEDS: HYDROmorphone 1 MG/ML Syringe IVPUSH ONE (17:32)
== END 2024-11-28 17:50 ==
LOC: KA.ED 13:54
DX: S70.11XA Contusion of right thigh, initial encounter (principal); T45.515A Adverse effect of anticoagulants, initial encounter; I48.91 Unspecified atrial fibrillation; I25.10 Atherosclerotic heart disease of native coronary artery without angina pectoris; I11.0 Hypertensive heart disease with heart failure; I50.9 Heart failure, unspecified; I25.2 Old myocardial infarction; E11.9 Type 2 diabetes mellitus without complications; Z86.16 Personal history of COVID-19; Z91.048 Other nonmedicinal substance allergy status; Z88.0 Allergy status to penicillin; Z79.84 Long term (current) use of oral hypoglycemic drugs; Z79.899 Other long term (current) drug therapy; Z79.01 Long term (current) use of anticoagulants; X58.XXXA Exposure to other specified factors, initial encounter
CPT/HCPCS: 73701-RT; 80053; 85025; 86140; 96361; 96374; 99284; 99285-25; J1171; J7030; Q3014; Q9967

== ENCOUNTER 2024-12-06 20:08 | Emergency (ER) | payer MEDICARE ==
[2024-12-06 20:51] LABS: BASOPHILS ABSOLUTE AUTO 0.06 10^3/uL (0.00-0.10); BASOPHILS PERCENT AUTO 0.6 % (0.0-1.0); HEMATOCRIT 27.9 % (40.0-52.0); HEMOGLOBIN 8.5 g/dL (13.0-17.0); LYMPHOCYTES ABSOLUTE AUTO 1.38 10^3/uL (1.00-4.00); LYMPHOCYTES PERCENT AUTO 13.1 % (20.0-40.0); MEAN CORPUSCULAR HEMOGLOBIN 28.1 pg (27.0-31.0); MEAN CORPUSCULAR HGB CONC 30.5 g/dL (32.0-36.0); MEAN CORPUSCULAR VOLUME 92.1 fL (82.0-92.0); MEAN PLATELET VOLUME 9.6 fL (7.4-10.4); MONOCYTES ABSOLUTE AUTO 1.01 10^3/uL (0.10-0.80); MONOCYTES PERCENT AUTO 9.6 % (2.0-8.0); NEUTROPHILS ABSOLUTE AUTO 7.96 10^3/uL (2.50-7.00); NEUTROPHILS PERCENT AUTO 75.7 % (50.0-70.0); PLATELET COUNT,PLT 386 10^3/uL (150-400); RED BLOOD CELL COUNT 3.03 10^6/uL (4.50-6.00); RED CELL DISTRIBUTION WIDTH 15.9 % (11.5-14.5); WHITE BLOOD CELL COUNT,WBC 10.51 10^3/uL (5.00-10.00)
[2024-12-06] MEDS ORDERED: Naloxone 0.4 MG/ML SDV IVPUSH PRN (20:55)
[2024-12-06] MEDS: Sodium Chloride 0.9% 10 ML Syringe FLUSH PRN (21:02)
[2024-12-06 21:06] LABS: ANION GAP 20.1 mmol/L (5-15); BLOOD UREA NITROGEN,BUN 33 mg/dL (7-18); CALCIUM 9.3 mg/dL (8.7-10.3); CHLORIDE,CL 103 mmol/L (98-107); CREATININE 1.51 mg/dL (0.51-1.17); GLUCOSE RANDOM 153 mg/dL (70-140); POTASSIUM,K 5.1 mmol/L (3.5-5.1); SODIUM,NA 143 mmol/L (136-145)
[2024-12-06 21:10] LABS: ESTIMATED GFR 49 mL/min (>=60)
[2024-12-06] MEDS: Ondansetron 4 MG/2 ML SDV IVPUSH PRN (21:11)
[2024-12-06] MEDS: HYDROmorphone 2 MG/ML Syringe IVPUSH ONE (21:16)
[2024-12-06 21:19] LABS: INR 1.1 (0.9-1.1); PTT,PARTIAL THROMBOPLSTIN TIME 30.1 SEC (21.6-32.4)
[2024-12-07 05:22] VITALS: BP 97/54; PULSE 41
== END 2024-12-07 00:41 ==
LOC: KA.ED 20:08
DX: M25.061 Hemarthrosis, right knee (principal); I26.99 Other pulmonary embolism without acute cor pulmonale; M79.81 Nontraumatic hematoma of soft tissue; T45.515A Adverse effect of anticoagulants, initial encounter; R71.0 Precipitous drop in hematocrit; I48.91 Unspecified atrial fibrillation; I25.10 Atherosclerotic heart disease of native coronary artery without angina pectoris; I11.0 Hypertensive heart disease with heart failure; I50.9 Heart failure, unspecified; I25.2 Old myocardial infarction; E11.9 Type 2 diabetes mellitus without complications; Z86.16 Personal history of COVID-19; Z95.1 Presence of aortocoronary bypass graft; Z91.048 Other nonmedicinal substance allergy status; Z88.1 Allergy status to other antibiotic agents; Z91.041 Radiographic dye allergy status; Z79.51 Long term (current) use of inhaled steroids; Z79.84 Long term (current) use of oral hypoglycemic drugs; Z79.899 Other long term (current) drug therapy; Z96.651 Presence of right artificial knee joint
CPT/HCPCS: 36415; 73700-RT; 80048; 85025; 85610; 85730; 96374; 96375; 99284; 99285-25; J1171; J2405